=== PATIENT | male | born 1990 | race Caucasian/White ===

== ENCOUNTER 2020-11-12 17:31 | Emergency (ER) | payer OTHER ==
[2020-11-12 18:11] LABS: HEMOGLOBIN 17.5 gm/dl (14.0-17.5); RED BLOOD COUNT 5.61 M/UL (4.20-5.50); WHITE BLOOD COUNT 9.5 K/UL (4.5-11.0)
[2020-11-12 18:47] LABS: BUN/CREATININE RATIO 7 (0-10)
== END 2020-11-12 19:49 | disposition home or self-care (01) ==
LOC: ER1 17:31
PROVIDERS: Physician Assistant Medical
DX: R07.89 Other chest pain (principal); E78.5 Hyperlipidemia, unspecified; I10 Essential (primary) hypertension; J45.909 Unspecified asthma, uncomplicated; K21.9 Gastro-esophageal reflux disease without esophagitis; Z79.899 Other long term (current) drug therapy; Z88.8 Allergy status to other drugs, medicaments and biological substances
CPT/HCPCS: 71045; 80053; 81001; 82550; 82553; 83874; 83880; 84439; 84443; 84484; 85025; 85379; 93005; 99285